=== PATIENT | female | born 1975 | race American Indian/Alaskan Native ===

== ENCOUNTER 2020-11-12 13:03 | Emergency (ER) | payer MEDICAID ==
[2020-11-12 13:11] VITALS: BP 144/92
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
== END 2020-11-12 14:18 | disposition home or self-care (01) ==
LOC: ED 13:03
DX: S50.12XA Contusion of left forearm, initial encounter (principal); S70.12XA Contusion of left thigh, initial encounter; I10 Essential (primary) hypertension; Z79.1 Long term (current) use of non-steroidal anti-inflammatories (NSAID); Z79.899 Other long term (current) drug therapy; Z88.8 Allergy status to other drugs, medicaments and biological substances; V49.49XA Driver injured in collision with other motor vehicles in traffic accident, initial encounter; W22.10XA Striking against or struck by unspecified automobile airbag, initial encounter; Y93.89 Activity, other specified; Y92.410 Unspecified street and highway as the place of occurrence of the external cause; Y99.8 Other external cause status
CPT/HCPCS: 99281

== ENCOUNTER 2021-10-22 08:24 | Outpatient (CLI) | payer BC ==
--- NOTE | 2021-10-22 11:11 | Ultrasound Report ---
US transvaginal INDICATION / CLINICAL INFORMATION: N83.201 R10.31. TECHNIQUE: Transabdominal. Duplex Color Doppler used: Yes. COMPARISON: None available FINDINGS: UTERUS: Measures 10 cm. -Endometrial stripe measures 1.6 cm. There is an endometrial cyst measuring approximately 9 x 4 mm. - Mass lesions: 1.6 cm posterior subserosal lesion . -Nabothian cysts seen within the cervix. One contains a mural nodule but no vascularity measuring up to 1.3 cm. RIGHT ADNEXA: 3 cm simple appearing right ovarian cyst, mostly benign etiology. Normal color Doppler blood flow. LEFT ADNEXA: 2 similar left ovarian cyst. Normal color Doppler blood flow. URINARY BLADDER: No significant abnormality. FREE FLUID: None. ADDITIONAL FINDINGS: None. IMPRESSION: 1. The endometrial stripe is upper limits of normal in thickness with an endometrial cyst measuring 9 mm. 2. Slightly complex nabothian cyst with a mural nodule but no internal vascularity. 3. Follow up ultrasound in 6-8 weeks to further characterize and ensure stability of the above silviano ramires findings. 4. 1.6cm uterine lesion, most likely fibroid. Signer Name: Tab Lombardi MD Signed: 10/22/2021 9:54 AM Workstation Name: [id number]
== END 2021-10-22 08:25 | disposition home or self-care (01) ==
LOC: US 08:24
PROVIDERS: ATTEND Family Medicine
DX: N83.201 Unspecified ovarian cyst, right side (principal); N83.202 Unspecified ovarian cyst, left side; N85.9 Noninflammatory disorder of uterus, unspecified; R93.89 Abnormal findings on diagnostic imaging of other specified body structures
CPT/HCPCS: 76830

== ENCOUNTER 2021-10-23 08:24 | Outpatient (CLI) | payer BC ==
--- NOTE | 2021-10-23 10:24 | Mammography Report ---
DIGITAL SCREENING MAMMOGRAM WITH CAD, 10/23/2021 CLINICAL INFORMATION / INDICATION: Routine screening mammography. SCREENING MAMMO Z12.31 TECHNIQUE: Digital bilateral 2D mammography was obtained in the craniocaudal and mediolateral obliqu e projections. This examination was interpreted with the benefit of Computer-Aided Detection analysis . COMPARISON: None FINDINGS: Breast Density: The breasts are heterogeneously dense, which may obscure small masses. No dominant mass, suspicious calcifications, or architectural distortion in either breast. IMPRESSION: No mammographic evidence of malignancy. Follow up recommendation: Routine yearly BI-RADS Category 1: NEGATIVE A "normal" or negative report should not discourage follow up or biopsy of a clinically significant f inding. A written summary of these findings will be mailed to the patient. The patient will be entered into a mammography reporting system which will generate a reminder letter for the patient's next appointmen t at the appropriate interval. The [employer] recommends yearly mammograms starting at age 40 and continuing as l sudheer as a woman is in good health. Breast MRI is recommended for women with an approximate 20-25% or greater lifetime risk of breast cancer, including women with a strong family history of breast or ova xin cancer or who have been treated for Hodgkin's disease. Signer Name: Michael Brar MD Signed: 10/23/2021 10:19 AM Workstation Name: [id number]
== END 2021-10-23 08:25 | disposition home or self-care (01) ==
LOC: SPVWC 08:24
PROVIDERS: ATTEND Family Medicine
DX: Z12.31 Encounter for screening mammogram for malignant neoplasm of breast (principal)
CPT/HCPCS: 77067